=== PATIENT | male | born 1940 | race Caucasian/White ===

== ENCOUNTER 2017-01-02 08:49 | Emergency (ER) | payer OTHER, MEDICARE | END 2017-01-02 13:28 | disposition home or self-care (01) | LOC: ER 08:49 | DX: R06.00 Dyspnea, unspecified (principal); I25.10 Atherosclerotic heart disease of native coronary artery without angina pectoris; I10 Essential (primary) hypertension; E78.5 Hyperlipidemia, unspecified; Z95.5 Presence of coronary angioplasty implant and graft; Z79.82 Long term (current) use of aspirin; Z79.02 Long term (current) use of antithrombotics/antiplatelets; Z79.899 Other long term (current) drug therapy | CPT/HCPCS: 36415; 87502; 96360; Q9967 ==